=== PATIENT | male | born 1985 | race Two or more races ===

== ENCOUNTER 2021-02-11 22:17 | Emergency (ER) | payer OTHER ==
--- NOTE | 2021-02-11 22:47 | ED Physician Documentation ---
PD HPI DYSPNEA - Stated complaint Stated Complaint: TROUBLE BREATHING - Chief complaint Chief Complaint: Neuro - History obtained from History obtained from: Patient, Friend - History of Present Illness Timing - onset: How many minutes ago (50) Timing - details: Gradual onset Similar symptoms before: Has not had sx before - Additional information Additional information: patient does not contribute to HPI/ROS due to AMS. Per friend (in ED at bedside), patient tried marijuana for the first time tonight. Smoked marijuana that was bought from a local dispensary. This was approximately 50 minutes ago. Subsequently, he became diaphoretic, hyperventilating, and although awake, stopped responding verbally (staring blankly). No fall, no injury. Review of Systems Unable to obtain: AMS PD PAST MEDICAL HISTORY - Past Medical History Past Medical History: No - Present Medications Home Medications: Ambulatory Orders Medication Instructions Recorded Confirmed No Known Home Medications 02/11/21 02/11/21 - Allergies Allergies/Adverse Reactions: Allergies Allergy/AdvReac Type Severity Reaction Status Date / Time No Known Drug Allergies Allergy Verified 02/11/21 22:27 PD ED PE NORMAL - Vitals Vital signs reviewed: Yes - General General: No acute distress, Well developed/nourished, Other (awake, stares, poor eye contact, follows simple commands.) - HEENT HEENT: Atraumatic, PERRL, EOMI, Moist mucous membranes - Neck Neck: Supple, no meningeal sign - Cardiac Cardiac: RRR, No murmur - Respiratory Respiratory: No respiratory distress, Clear bilaterally - Abdomen Abdomen: Soft, Non tender - Neuro Neuro: No motor deficit Eye Opening: Spontaneous Motor: Obeys Commands Verbal: None GCS Score: 11 Results - Vitals Vitals: Vital Signs - 24 hr 02/11/21 02/11/21 02/12/21 22:20 22:35 00:24 Temperature 36.0 C L Heart Rate 94 86 71 Respiratory 18 37 H 22 Rate Blood Pressure 141/84 H 137/75 H 131/70 H O2 Saturation 100 97 99 Oxygen O2 Source Room air - Labs Labs: Laboratory Tests 02/11/21 02/11/21 22:47 22:47 WBC 9.5 RBC 4.51 L Hgb 14.1 Hct 41.6 L MCV 92.2 MCH 31.3 H MCHC 33.9 RDW 12.4 Plt Count 213 MPV 10.6 Neut # (Auto) 5.6 Lymph # (Auto) 2.8 [place] # (Auto) 0.6 Eos # (Auto) 0.4 Baso # (Auto) 0.1 Absolute Nucleated RBC 0.00 Nucleated RBC % 0.0 Sodium 135 Potassium 3.3 L Chloride 98 L Carbon Dioxide 26 Anion Gap 11.0 BUN 25 H Creatinine 1.4 H Estimated GFR (MDRD) 57 L Glucose 231 H Calcium 8.9 Total Bilirubin 0.7 AST 29 ALT 31 Alkaline Phosphatase 52 Total Protein 7.4 Albumin 4.4 Globulin 3.0 Albumin/Globulin Ratio 1.5 Lipase 37 PD MEDICAL DECISION MAKING - ED course Complexity details: reviewed results, re-evaluated patient, considered differential, d/w patient ED course: given IV fluids (1 liter NS bolus) and basic blood work checked with noncontributory findings of mildly elevated bun/creatinine, blood glucose, and mild hypokalemia (these can be rechecked in outpatient setting). On reevaluation, he is awake, alert, NAD. He says he feels well. He confirms he smoked marijuana for first time tonight. He is comfortable with d/c home. Departure - Departure Disposition: 01 Home, Self Care Clinical Impression: Marijuana use Condition: Good Instructions: ED Altered Loc Discharge Date/Time: 02/12/21 01:15
[2021-02-11] MEDS ORDERED: SODIUM CHLORIDE 0.9% 1,000 ML IV STA (23:30)
[2021-02-11 23:53] LABS: BASOPHILS # (AUTO) 0.1 10^3/uL (0.0-0.1); BASOPHILS % (AUTO) 0.6 %; EOSINOPHILS # (AUTO) 0.4 10^3/uL (0.0-0.7); HCT - HEMATOCRIT 41.6 % (42.0-52.0); HGB - HEMOGLOBIN 14.1 g/dL (14.0-18.0); LYMPHOCYTES # (AUTO) 2.8 10^3/uL (1.5-3.5); LYMPHOCYTES % (AUTO) 29.8 %; MEAN CORPUSCULAR HEMOGLOBIN 31.3 pg (27.0-31.0); MEAN CORPUSCULAR HGB CONC 33.9 g/dL (32.0-36.0); MEAN CORPUSCULAR VOLUME 92.2 fL (80.0-94.0); MEAN PLATELET VOLUME 10.6 fL (7.4-11.4); MONOCYTES # (AUTO) 0.6 10^3/uL (0.0-1.0); MONOCYTES % (AUTO) 6.7 %; NEUTROPHILS # (AUTO) 5.6 10^3/uL (1.5-6.6); NEUTROPHILS % (AUTO) 58.6 %; PLT - PLATELET COUNT 213 10^3/uL (130-450); RED BLOOD COUNT 4.51 10^6/uL (4.70-6.10); RED CELL DISTRIBUTION WIDTH 12.4 % (12.0-15.0); WHITE BLOOD COUNT 9.5 x10^3/uL (4.8-10.8)
[2021-02-12 00:08] LABS: ALBUMIN 4.4 g/dL (3.2-5.5); ALBUMIN/GLOBULIN RATIO 1.5 (1.0-2.2); BILIRUBIN,TOTAL 0.7 mg/dL (0.2-1.0); CALCIUM 8.9 mg/dL (8.5-10.3); CREATININE 1.4 mg/dL (0.6-1.2); POTASSIUM 3.3 mmol/L (3.5-5.0); TOTAL PROTEIN 7.4 g/dL (6.7-8.2)
[2021-02-12 00:33] VITALS: BP 131/70
== END 2021-02-12 01:15 | disposition home or self-care (01) ==
LOC: ED 22:17
DX: R41.82 Altered mental status, unspecified (principal); R06.4 Hyperventilation; R61 Generalized hyperhidrosis; R94.4 Abnormal results of kidney function studies; R73.9 Hyperglycemia, unspecified; E87.6 Hypokalemia
CPT/HCPCS: 36415; 80053; 83690; 85025; 96360; 99281